=== PATIENT | male | born 1955 | race African-American/Black ===

== ENCOUNTER 2017-08-06 14:57 | Inpatient (IN) | payer OTHER ==
[2017-08-06] MEDS: ASPIRIN 325 MG TAB PO (17:20)
[2017-08-06 17:29] LABS: ADD MAN DIFF? NO
[2017-08-06] MEDS: ONDANSETRON 4 MG INJ IV ×2 (17:29→17:52)
[2017-08-06 17:32] LABS: BASOPHILS % 0.2 % (0.0-2.0); EOSINOPHILS # 0.1 10^3/ul (0.0-0.5); EOSINOPHILS % 1.3 % (0.0-7.0); HEMATOCRIT 36.6 % (42.0-52.0); HEMOGLOBIN 13.1 g/dl (14.0-18.0); LYMPHOCYTES # 1.7 10^3/ul (0.8-2.9); LYMPHOCYTES % 16.2 % (15.0-51.0); MEAN CORPUSCULAR HEMOGLOBIN 28.5 pg (29.0-33.0); MEAN CORPUSCULAR HGB CONC 35.8 g/dl (32.0-37.0); MEAN CORPUSCULAR VOLUME 79.7 fl (82.0-101.0); MEAN PLATELET VOLUME 8.8 fl (7.4-10.4); MONOCYTE # 1.1 10^3/ul (0.3-0.9); MONOCYTES % 10.5 % (0.0-11.0); NEUTROPHIL # 7.7 10^3/ul (1.6-7.5); NEUTROPHILS % 71.7 % (39.0-77.0); PLATELET COUNT 342 10^3/UL (140-415); RED BLOOD COUNT 4.59 10^6/ul (4.70-6.10); RED CELL DISTRIBUTION WIDTH 14.3 % (11.5-14.5)
[2017-08-06 17:32] LABS: WHITE BLOOD COUNT 10.7 10^3/ul (4.8-10.8)
[2017-08-06 17:52] LABS: ANION GAP 19 (8-16); BLOOD UREA NITROGEN 34 mg/dl (7-20); CALCIUM 9.9 mg/dl (8.4-10.2); CARBON DIOXIDE 19 mmol/L (21-31); CHLORIDE 88 mmol/L (97-110); GLUCOSE 100 mg/dl (70-220); SODIUM 121 mmol/L (135-144)
[2017-08-06] MEDS: morphine 4 MG/ML VIAL IV (17:52)
[2017-08-06] MEDS: LORAZEPAM 2 MG INJ IV (17:52)
[2017-08-06 18:01] LABS: B-TYPE NATRIURETIC PEPTIDE 414 PG/ML (0-125)
[2017-08-06 18:05] LABS: TROPONIN-I 0.034 ng/ml (0.00-0.12)
[2017-08-06 18:15] LABS: POTASSIUM 5.3 mmol/L (3.5-5.1)
[2017-08-06] MEDS ORDERED: ONDANSETRON 4 MG INJ IV (19:00)
[2017-08-06] MEDS ORDERED: ACETAMINOPHEN 325 MG TAB PO (19:00)
[2017-08-06] MEDS ORDERED: NACL 0.9% 3 ML SYG IV (19:00)
[2017-08-06] MEDS ORDERED: MAGNESIUM HYDROXIDE 30ML CUP PO (19:00)
[2017-08-06] MEDS ORDERED: DOCUSATE SODIUM 100 MG CAP PO (19:00)
[2017-08-06] MEDS ORDERED: NITROGLYCERIN (SL) 0.4 MG TAB SL (19:00)
[2017-08-06] MEDS ORDERED: LORAZEPAM 2 MG INJ IV (19:00)
[2017-08-06] MEDS: SOD CHLORIDE 0.9% 1,000 ML IV ×2 (19:06→19:07)
[2017-08-06] MEDS ORDERED: DEXTROSE 5%-0.45% NACL 500 ML IV (19:30)
[2017-08-06] MEDS ORDERED: SODIUM BICARBONATE (IV ADD) 100 MEQ in DEXTROSE 5% 900 ML IV (19:37)
[2017-08-06] MEDS: NA POLYST SULFON 15 GM/60 ML BTL PO ×2 (19:49→20:21)
[2017-08-06] MEDS: CA CHLORIDE 10% 10 ML SYRINGE IV (19:49)
[2017-08-06 19:54] LABS: CREATINE KINASE 89 IU/L (23-200)
[2017-08-06 20:43] LABS: CK INDEX 1.3; TROPONIN-I 0.044 ng/ml (0.00-0.12)
[2017-08-06 20:56] LABS: CK-MB 1.13 ng/ml (0.0-2.4)
[2017-08-06] MEDS ORDERED: ISOSORBIDE DINITRATE 10 MG TAB PO (21:00)
[2017-08-06] MEDS: FAMOTIDINE 20 MG TAB PO (22:05)
[2017-08-06] MEDS: CALCIUM CARBONATE 500 MG CHEW TAB PO (22:05)
[2017-08-06] MEDS: SUCRALFATE 1 GM TAB PO (22:06)
[2017-08-07] MEDS ORDERED: NICOTINE POLACRILEX 2 MG GUM BUCCAL (00:30)
[2017-08-07] MEDS: ATORVASTATIN 40 MG TAB PO ×2 (00:54→20:13)
[2017-08-07] MEDS: GABAPENTIN 300 MG CAP PO ×2 (00:54→20:13)
[2017-08-07] MEDS: FERROUS SULFATE (EC) 325 MG TAB PO ×3 (00:57→20:12)
[2017-08-07] MEDS: LOSARTAN 50 MG TAB PO ×3 (00:57→20:12)
[2017-08-07] MEDS ORDERED: ALBUTEROL/IPRATROPIUM (NEB) 3 ML AMP HHN (01:00)
[2017-08-07 01:04] LABS: CREATINE KINASE 67 IU/L (23-200)
[2017-08-07] MEDS: ISOSORBIDE MONONITRATE(SR)30 MG TAB PO ×2 (01:08→09:21)
[2017-08-07] MEDS: ZOLPIDEM 5 MG TAB PO (01:13)
[2017-08-07 01:14] LABS: CK INDEX 2.1
[2017-08-07] MEDS: HYDROCODONE/APAP (5/325) TAB PO ×3 (01:14→20:50)
[2017-08-07 01:18] LABS: TROPONIN-I 0.057 ng/ml (0.00-0.12)
[2017-08-07 03:00] LABS: CREATINE KINASE 72 IU/L (23-200)
[2017-08-07 03:13] LABS: CK INDEX 1.8; TROPONIN-I 0.055 ng/ml (0.00-0.12)
[2017-08-07 03:16] LABS: CK-MB 1.31 ng/ml (0.0-2.4)
[2017-08-07] MEDS: PANTOPRAZOLE 40 MG INJ IV ×2 (06:09→17:25)
[2017-08-07] MEDS ORDERED: PANTOPRAZOLE (EC) 40 MG TAB PO (07:00)
[2017-08-07] MEDS: SUCRALFATE 1 GM TAB PO ×4 (08:12→20:11)
[2017-08-07 08:25] LABS: ADD MAN DIFF? NO
[2017-08-07 08:37] LABS: BASOPHILS % 0.3 % (0.0-2.0); EOSINOPHILS # 0.1 10^3/ul (0.0-0.5); EOSINOPHILS % 1.2 % (0.0-7.0); HEMOGLOBIN 10.6 g/dl (14.0-18.0); LYMPHOCYTES % 13.6 % (15.0-51.0); MEAN CORPUSCULAR HEMOGLOBIN 28.2 pg (29.0-33.0); MEAN CORPUSCULAR HGB CONC 35.3 g/dl (32.0-37.0); MEAN CORPUSCULAR VOLUME 79.8 fl (82.0-101.0); MEAN PLATELET VOLUME 9.6 fl (7.4-10.4); MONOCYTE # 0.8 10^3/ul (0.3-0.9); MONOCYTES % 10.9 % (0.0-11.0); NEUTROPHIL # 5.6 10^3/ul (1.6-7.5); NEUTROPHILS % 73.7 % (39.0-77.0); PLATELET COUNT 284 10^3/UL (140-415); RED BLOOD COUNT 3.76 10^6/ul (4.70-6.10); RED CELL DISTRIBUTION WIDTH 14.4 % (11.5-14.5)
[2017-08-07 08:37] LABS: WHITE BLOOD COUNT 7.6 10^3/ul (4.8-10.8)
[2017-08-07 08:49] LABS: HEMOGLOBIN A1C 5.4 % (0-5.9)
[2017-08-07] MEDS ORDERED: SPIRONOLACTONE 25 MG TAB PO (09:00)
[2017-08-07 09:01] LABS: ALANINE AMINOTRANSFERASE 31 IU/L (13-69); ALBUMIN 3.7 g/dl (3.3-4.9); ALBUMIN/GLOBULIN RATIO 1.15; ALKALINE PHOSPHATASE 52 IU/L (42-121); ANION GAP 12 (8-16); ASPARTATE AMINO TRANSFERASE 33 IU/L (15-46); BILIRUBIN,INDIRECT 0.1 mg/dl (0-1.1); BILIRUBIN,TOTAL 0.1 mg/dl (0.2-1.3); BLOOD UREA NITROGEN 29 mg/dl (7-20); CALCIUM 8.8 mg/dl (8.4-10.2); CARBON DIOXIDE 16 mmol/L (21-31); CHLORIDE 98 mmol/L (97-110); CHOLESTEROL 97 mg/dl (100-200); CREATININE 1.69 mg/dl (0.61-1.24); GLUCOSE 104 mg/dl (70-220); HDL CHOLESTEROL 48 mg/dl (30-78); LDL CHOLESTEROL,CALCULATED 32 mg/dl; MAGNESIUM 1.6 mg/dl (1.7-2.5); POTASSIUM 4.4 mmol/L (3.5-5.1); SODIUM 122 mmol/L (135-144); TOTAL PROTEIN 6.9 g/dl (6.1-8.1); TRIGLYCERIDES 86 mg/dl (0-149)
[2017-08-07 09:03] LABS: CREATINE KINASE 63 IU/L (23-200)
[2017-08-07 09:07] LABS: CK INDEX 2.1; CK-MB 1.31 ng/ml (0.0-2.4); TROPONIN-I 0.038 ng/ml (0.00-0.12)
[2017-08-07] MEDS: CALCIUM CARBONATE 500 MG CHEW TAB PO ×4 (09:20→20:13)
[2017-08-07] MEDS: THIAMINE 100 MG TAB PO (09:29)
[2017-08-07] MEDS: ASPIRIN 81 MG TAB PO (09:29)
[2017-08-07] MEDS: FOLIC ACID 1 MG TAB PO (09:29)
[2017-08-07] MEDS: MULTIVITAMINS THERAPEUTIC TAB PO (09:29)
[2017-08-07] MEDS: LORATADINE 10 MG TAB PO (09:30)
[2017-08-07] MEDS: NICOTINE (21 MG/24 HR) PATCH TRANSDERM (09:30)
[2017-08-07 10:15] LABS: ADD UMIC NO; UR ASCORBIC ACID NEGATIVE (NEGATIVE); UR BILIRUBIN (Dip) NEGATIVE (NEGATIVE); UR BLOOD (Dip) NEGATIVE (NEGATIVE); UR CLARITY CLEAR (CLEAR); UR COLOR YELLOW (YELLOW); UR GLUCOSE (Dip) NEGATIVE (NEGATIVE); UR KETONES (Dip) NEGATIVE (NEGATIVE); UR LEUKOCYTE ESTERASE (Dip) NEGATIVE Leu/ul (NEGATIVE); UR NITRITE (Dip) NEGATIVE (NEGATIVE); UR SPECIFIC GRAVITY (Dip) 1.008 (1.003-1.030); UR TOTAL PROTEIN (Dip) NEGATIVE (NEGATIVE); UR UROBILINOGEN (Dip) NEGATIVE (NEGATIVE)
[2017-08-07 10:32] LABS: AMPHETAMINE/METHAMPHETAMINE Negative (NEGATIVE); BARBITURATES Negative (NEGATIVE); BENZODIAZEPINES Negative (NEGATIVE); CANNABINOIDS Negative (NEGATIVE); COCAINE Negative (NEGATIVE); OPIATES Positive (NEGATIVE)
[2017-08-07 12:02] LABS: LIPASE 97 U/L (23-300)
[2017-08-07 12:02] LABS: AMYLASE 131 U/L (11-123)
[2017-08-07] MEDS: MAGNESIUM SULFATE 2 GM/50 ML 50 ML IVPB (15:01)
[2017-08-07] MEDS: SOD CHLORIDE 0.9% 1,000 ML IV (15:06)
[2017-08-07 15:24] LABS: PROTIME 14.4 Sec (11.9-14.9); PT RATIO 1.1
[2017-08-07 15:25] LABS: PARTIAL THROMBOPLASTIN TIME 29.2 Sec (25.0-35.0)
[2017-08-07 15:28] LABS: ANION GAP 14 (8-16); BLOOD UREA NITROGEN 29 mg/dl (7-20); CARBON DIOXIDE 19 mmol/L (21-31); CHLORIDE 97 mmol/L (97-110); GLUCOSE 107 mg/dl (70-220); POTASSIUM 5.1 mmol/L (3.5-5.1); SODIUM 125 mmol/L (135-144)
== END 2017-08-07 20:43 | disposition short-term general hospital (02) | DRG 313 ==
LOC: E/R 14:57 → TEL 19:07
DX: R07.89 Other chest pain (principal); N17.9 Acute kidney failure, unspecified; I42.9 Cardiomyopathy, unspecified; G62.9 Polyneuropathy, unspecified; I12.9 Hypertensive chronic kidney disease with stage 1 through stage 4 chronic kidney disease, or unspecified chronic kidney disease; N18.9 Chronic kidney disease, unspecified; G40.909 Epilepsy, unspecified, not intractable, without status epilepticus; F10.10 Alcohol abuse, uncomplicated; R79.89 Other specified abnormal findings of blood chemistry
CPT/HCPCS: 36415; 71045; 76705; 80048; 80053; 80061; 80307; 81003; 82150; 82550; 82553; 83036; 83690; 83735; 83880; 84443; 84484; 85025; 85610; 85730; 87086; 93005; 93306; 96374; 96375; 97162; 99285-25; G0378